=== PATIENT | male | born 1960 | race Caucasian/White ===

== ENCOUNTER 2018-11-26 22:02 | Emergency (ER) | payer SELFPAY ==
[~2018-11-26] VITALS: Ht 185.4 cm; Wt 91.0 kg
[2018-11-26 22:11] VITALS: BP 110/76
--- NOTE | 2018-11-26 22:30 | NUR ---
PT HAS PULLED OUT IV, TIP INTACT. GEAR DESIGN ENGINEER AWARE SITTER IS NEEDED. REQUEST MADE TO HOUSE SUP
--- NOTE | 2018-11-26 22:42 | NUR ---
PT FOUND IN HALLWAY. PT REFUSING TO RESPOND TO REQUESTS TO RETURN TO ROOM. PT AMBULATED OUT OF AMBULANCE BAY WITH STEADY GAIT. FORK TRUCK OPERATOR MADE AWARE.
== END 2018-11-26 22:58 | disposition left against medical advice (07) ==
LOC: ED 22:30
DX: S09.8XXA Other specified injuries of head, initial encounter (principal); W18.30XA Fall on same level, unspecified, initial encounter; Y93.89 Activity, other specified; Y92.89 Other specified places as the place of occurrence of the external cause; Y99.8 Other external cause status
CPT/HCPCS: 99283